=== PATIENT | male | born 1950 | race Caucasian/White ===

== ENCOUNTER 2019-12-03 08:20 | Day surgery (SDC) | payer MEDICARE, BC ==
[~2019-12-03] VITALS: Ht 185.4 cm; Wt 97.7 kg
[2019-12-03] MEDS ORDERED: BAYER CHEWABLE81 MG PO (09:01)
[2019-12-03] MEDS ORDERED: CRESTOR10 MG PO (09:02)
[2019-12-03] MEDS ORDERED: COZAAR50 MG PO (09:02)
[2019-12-03] MEDS ORDERED: GLUCOPHAGE500 MG PO (09:03)
[2019-12-03] MEDS ORDERED: PROTONIX40 MG PO (09:03)
[2019-12-03] MEDS ORDERED: CARAFATE1 G PO (09:04)
[2019-12-03 09:13] VITALS: Ht 185.4 cm; Wt 97.7 kg
[2019-12-03 09:21] LABS: APTT 29.3 SECONDS (22.8-39.4); INR 1.08 (0.85-1.17); PROTIME 13.9 SECONDS (11.6-15.0)
[2019-12-03 09:22] LABS: ANION GAP 10.1 mmol/L (8-16); CALCIUM 9.2 mg/dL (8.5-10.1); CARBON DIOXIDE 31.2 mmol/L (21.0-32.0); CREATININE - SERUM 1.1 mg/dL (0.6-1.3); POTASSIUM - SERUM 4.3 mmol/L (3.5-5.1)
[2019-12-03 09:43] LABS: HEMOGLOBIN 14.2 g/dL (13.5-17.5); MCH 28.7 pg (26.0-34.0); MCHC 32.3 g/dL (31.0-37.0); MCV 89.1 fL (80.0-100.0); MEAN PLATELET VOLUME 10.8 fL (7.4-10.4); RBC 4.94 10x6/uL (4.20-6.10); RDW 14.3 % (11.5-14.5)
--- NOTE | 2019-12-03 10:49 | NUR ---
0869 DR DIMAS AT PT BEDSIDE DISCUSSING RESULTS OF EGD AND RECOMMENDATIONS. [address] VELIZ'S OFFICE FOR CONSULT ORDERED BY DR DIMAS. REFERRAL APPOINTMENT WITH DR VELIZ MADE FOR PATIENT. 1022 IV DC'D. CATHETER TIP INTACT. NO BLEEDING AT SITE. BANDAID APPLIED.
--- NOTE | 2019-12-04 06:47 | OP ---
PATIENT NAME: ASHU SYED MEDICAL RECORD: [id number] :48 LOCATION:[facility] ADMISSION DATE: SURGEON: MARCELO DIMAS DO DATE OF OPERATION: 12/03/2019 PROCEDURE: EGD with balloon dilation and biopsies. INDICATIONS FOR PROCEDURE: Dysphagia, GERD, unintentional weight loss. SCOPE: Olympus video gastroscope. MEDICATIONS: Propofol 240 mg IV per anesthesia. ESTIMATED BLOOD LOSS: Minimal. COMPLICATIONS: None. FINDINGS: Informed consent was given. The patient was made comfortable with the above medication. After reaching an adequate level of sedation by slow IV push, the patient was placed on his left side. The endoscope was advanced under direct visualization through the mouth to the second portion of the duodenum with ease. The upper, middle, and lower thirds of the esophagus appeared normal. At the GE junction, there was a ring consistent with a Schatzki's ring just proximal to a hiatal hernia. This ring was dilated to 20 mm maximum diameter using a CRE dilating balloon. The endoscope was advanced beyond the GE junction into the stomach and retroflexed to view the cardia and fundus. There was a mytce-wq-cvpakquz size hiatal hernia without associated ulcerations or other abnormalities. Throughout the fundus and body of the stomach, there were multiple benign-appearing fundic gland type polyps. A biopsy was taken of one of these polyps to confirm their benign nature. The mucosa of the stomach appeared normal. Cold forceps, biopsies were taken from the antrum and incisura to submit for histopathology and to rule out the presence of H. pylori. The endoscope was advanced beyond the pylorus into the duodenum. There was some erythema and granularity in the bulb consistent with mild duodenitis, likely reactive in nature. The second portion of the duodenum appeared normal. Cold forceps, biopsies were taken from the duodenum. The endoscope was withdrawn from the patient. The patient tolerated the procedure well and there were no complications. IMPRESSION: 1. Schatzki ring located at the gastroesophageal junction. 2. Zdmhm-gf-gnrqmytq size hiatal hernia. 3. 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 4. Mild duodenitis. PLAN AND RECOMMENDATIONS: 1. Discharge home when recovery parameters are met. 2. Follow up biopsy specimen results. 3. GERD diet and reflux precautions. 4. Continue current medications. 5. Consider fundoplication for uncontrolled reflux, on medications. 6. Follow up in GI clinic in 4-6 weeks. TRANSINT:[id number] Voice Confirmation ID: [id number] DOCUMENT ID: [id number] OPERATIVE REPORT [id number] ASHU SYED,MARCELO Floyd DO at 0647 CC: [id number] DICTATION DATE: 12/03/19 0947 SATURATOR OPERATOR: 12/03/192009 [facility] 12/03/[address] [address]
== END 2019-12-03 10:42 | disposition home or self-care (01) ==
LOC: D.OPS 08:20
PROVIDERS: Anesthesiology; ATTEND Internal Medicine Gastroenterology
DX: R13.10 Dysphagia, unspecified (principal); K21.9 Gastro-esophageal reflux disease without esophagitis; R63.4 Abnormal weight loss; E11.9 Type 2 diabetes mellitus without complications; Z79.84 Long term (current) use of oral hypoglycemic drugs

== ENCOUNTER 2020-02-21 12:00 | Outpatient (CLI) | payer MEDICARE, BC ==
[2019-12-03 09:13] VITALS: BMI 28.4
[~2020-02-21 12:00] MED LIST: BAYER CHEWABLE81 MG PO; CARAFATE1 G PO; COZAAR50 MG PO; CRESTOR10 MG PO; GLUCOPHAGE500 MG PO; PROTONIX40 MG PO
== END 2020-02-21 13:50 ==
LOC: D.OPS 12:00
PROVIDERS: ATTEND Surgery
DX: K21.9 Gastro-esophageal reflux disease without esophagitis (principal); K44.9 Diaphragmatic hernia without obstruction or gangrene